=== PATIENT | female | born 1945 | race Caucasian/White ===

== ENCOUNTER → 2016-07-13 | Outpatient (CLI) | payer OTHER ==
[~2016-07-13] MED LIST: ACETAMINOPHEN650 M1 PO; ALLEGRA-D1 TAB.SR1; ASTELIN137 MCG; ASTELIN137 MCG INH; ATIVAN0.5 MG PO; BENTYL20 MG PO; BUTALB-ACETAMI1 EACH PO; CALCIUM; CALCIUM + D 6001 TA1 PO; CALCIUM 600 +1 EA16 PO; CALCIUM CITRATE1 T12 PO; CALCIUM CITRATE1 T15 PO; CARAFATE1 G PO; CENTRUM SILVER PO; CIPRO250 MG PO; CRESTOR PO; FEMARA2.5 MG; FIORICET W/CODE1 CAP; FLOVENT DISKUS50 MCG INH; FLUOXETINE HCL20 M1 PO; FOSAMAX PO; GLUCOSAMINE500 M1 PO; LIPITOR40 MG PO; LISINOPRIL20 MG PO; LODINE400 MG PO; METOPROLOL SUCC25 MG PO; NABUMETONE; NASONEX17 GM; NEURONTIN100 MG PO; NILSTAT PO; OMEGA 3 FISH OI1 CAP PO; OMEPRAZOLE20 M1 PO; OMEPRAZOLE20 M2 PO; OSTEO BI-FLEX1 EAC1 PO; PERCOCET5/325 PO; PREVACID; PRILOSEC20 M1 PO; PROTONIX PO; PROZAC PO; SARAFEM20 MG PO; STOOL SOFTENER100 M1 PO; TOPROL XL PO; TRIMETHOPRIM; VITAMIN D1000 UNI1 PO; VITAMIN D3 1,01 EACH PO; VITAMIN D31000 UNI1 PO; WAL-FEX ALLERG180 MG PO; ZETIA PO; ZOCOR
--- NOTE | ~2016-07-13 | US5 ---
[facility] A Service of [facility] & [facility] RADIOLOGY TEXT RESULTS PATIENT: HENRI HAN LOCATION: [facility] : 43 UNIT #: [id number] AGE: [address]: JESS VALERIO MD SEX: F ORDER DR: [id number] [facility] [address] [place], [place] [address] [id number] O MR#: [id number] Acc #: [id number] NAME: HENRI HAN : 1945 SEX: F STUDY DATE/TIME: 07/13/2016 10:57 UNIT: [facility] ROOM: STUDY DESCRIPTION: US Abdominal Complete Attending Physician: Jess Valerio M.D. Referring Physician: Jess Valerio M.D. Ordering Physician: Jess Valerio M.D. Primary Care Physician: Jess Valerio M.D. MEDICAL IMAGING REPORT This report is preliminary unless electronic signature is present EXAM Abdominal ultrasound, complete, 07/13/2016. HISTORY Abnormally elevated liver enzymes on 07/01/2016. FINDINGS The liver is homogeneous in echotexture and demonstrates no cystic or solid mass lesions. The intra and extrahepatic bile ducts are not dilated. The gallbladder contains minimal sludge and there is a small nonshadowing echogenic focus along its dependent portion which could represent a nonshadowing gallstone. There is no evidence of gallbladder wall thickening or pericholecystic fluid. The common duct measures 4 mm. The pancreas and spleen are normal. The spleen measures 8.5 cm in greatest diameter. The visualized portions of the abdominal aorta and inferior vena cava are within normal limits. The kidneys are normal bilaterally. IMPRESSION Minimal gallbladder sludge. Small 3 mm echogenic nonshadowing focus along the dependent portion of the gallbladder may represent a nonshadowing gallstone. No evidence of gallbladder wall thickening. No intra or extrahepatic biliary ductal dilatation. Dictated by... Matthew Henry M.D. THIS IS AN ELECTRONICALLY VERIFIED REPORT Matthew Henry M.D. at 07/14/2016 8:30 AM KRT/veena [facility] A Service of [facility] & [facility] RADIOLOGY TEXT RESULTS PATIENT: HENRI HAN [id number] : 43 UNIT #: [id number] AGE: [address]: JESS VALERIO MD SEX: F ORDER DR: TD: 07/13/2016 12:46 JOB #: [id number] MEDICAL IMAGING REPORT Page 1 of 1 COPY
== END | disposition home or self-care (01) ==
LOC: CGUS 10:09
DX: R79.89 Other specified abnormal findings of blood chemistry (principal); K82.8 Other specified diseases of gallbladder
CPT/HCPCS: 76700

== ENCOUNTER 2016-07-21 14:18 | Inpatient (IN) | payer OTHER ==
--- NOTE | ~2016-07-21 | CR72 ---
[facility] A Service of [facility] & [facility] RADIOLOGY TEXT RESULTS PATIENT: CHANTAL HAN LOCATION: [facility] : 43 UNIT #: [id number] AGE: [address]: Cali Garza DO SEX: F ORDER DR: [id number] [facility] [address] [place], [place] [address] [id number] P MR#: [id number] Acc #: [id number] NAME: CHANTAL HAN : 1945 SEX: F STUDY DATE/TIME: 07/21/2016 11:26 UNIT: [facility] ROOM: STUDY DESCRIPTION: CR Chest Single View Portable Attending Physician: Cali Garza D.O. Ordering Physician: Cali Garza D.O. Primary Care Physician: Filemon Pulido M.D. MEDICAL IMAGING REPORT This report is preliminary unless electronic signature is present EXAM Chest portable 07/21/2016 1126 hours HISTORY 71-year-old woman with 2-day history of shortness of air with weakness. History of previous breast carcinoma. COMPARISON 11/13/2015 FINDINGS Portable upright chest demonstrates normal heart size. There is a tortuous atherosclerotic aorta without change. There is volume loss in the left hemithorax unchanged. There is mild increase in perihilar and interstitial markings left greater than right lung. There is no pleural effusion or pneumothorax. Benign calcified granulomatous changes are seen. Surgical clips are present in the left axilla. IMPRESSION There is stable volume loss in the left hemithorax with mild increase in perihilar interstitial markings left greater than right lung. This could be technical or could represent subtle evidence of interstitial edema. There are underlying benign calcified granulomata. There are no effusions. Dictated by... Chantal Padron M.D. THIS IS AN ELECTRONICALLY VERIFIED REPORT Chantal Padron M.D. at 07/21/2016 2:31 PM CONY/jason TD: 07/21/2016 13:08 JOB #: [id number] [facility] A Service of [facility] & [facility] RADIOLOGY TEXT RESULTS PATIENT: CHANTAL HAN LOCATION: [facility] #: [id number] : 43 UNIT #: [id number] AGE: [address]: Cali Garza DO SEX: F ORDER DR: MEDICAL IMAGING REPORT Page 1 of 1 COPY
--- NOTE | ~2016-07-21 | DS ---
Unit #: [id number] #: [id number] Patient: HENRI HAN [id number] [address] [place], [place] [address] [id number] I MR#: [id number] NAME: HENRI HAN ROOM: 569 Age: 71 Sex: F Admission Date: 07/21/2016 : 1945 Discharge Date: 07/25/2016 Attending Physician: Josh Branhc M.D. Primary Care Physician: Filemon Pulido M.D. DISCHARGE SUMMARY ADMITTING DIAGNOSES Weakness, dizziness, and possible urinary tract infection. HISTORY OF PRESENTING ILLNESS Patient is a 71-year-old lady with a past medical history of nonischemic cardiomyopathy, and history of breast cancer, status post mastectomy and lumpectomy, who was brought to the emergency room with the chief complaint of weakness since last Monday prior to hospitalization. HOSPITAL COURSE Initial workup showed a sodium of 125 and lactic acid of 2.3. She was started on IV fluids and started on sepsis protocol. Urinalysis showed leukocyte esterase 2+, nitrite negative, WBCs positive. Urine cultures were sent. She was started on antimicrobials. Clinically she is feeling better. Her urine culture came back as no growth. Physical therapy and occupational therapy evaluated her and recommended that she can be discharged home with home healthcare. She was also seen by Dr. Cleveland. He recommended to continue the fluoxetine. She is clinically better. I spoke with the patient and her family, and she wants to go home. PHYSICAL EXAMINATION ON DAY OF DISCHARGE VITAL SIGNS: Temperature 98.5, pulse rate 95, respirations 16, and blood pressure 105/71. GENERAL: Patient is alert and oriented x3, lying in the bed in no acute distress. HEENT: Normocephalic and atraumatic. No icterus. Pupils are equal, round, and reactive to light and accommodation. Extraocular muscles intact. NECK: Supple. No JVD. HEART: S1 and S2, regular rate and rhythm. CHEST: Bilateral equal air entry, clear to auscultation. ABDOMEN: Soft and nontender. EXTREMITIES: No edema. Normal pulses. DISCHARGE MEDICATIONS 1. Nystatin 5 mL swish and swallow 4 times daily. 2. Flonase 0.05% nasal spray daily. 3. Neurontin 100 mg 3 times daily. 4. Prozac 40 mg in the morning and 20 mg at bedtime. Unit #: [id number] #: [id number] Patient: HENRI HAN 5. Fexofenadine 180 mg p.o. daily. 6. Ativan 0.5 mg at bedtime. 7. Glucosamine 500 mg p.o. daily. 8. Toprol-XL 25 mg in the morning. 9. Lipitor 40 mg at bedtime. 10. Multivitamin 1 capsule p.o. daily. 11. Calcium with vitamin D 1 capsule p.o. daily. FOLLOWUP With her primary care in one to two weeks. Total time spent in her discharge 28 minutes. Dictated by... Jeana Freitas TD: 07/25/2016 21:15 JOB #: [id number] DISCHARGE SUMMARY Page 1 of 1 X X DISCHARGE SUMMARY
--- NOTE | ~2016-07-21 | HP ---
Unit #: [id number] #: [id number] Patient: HENRI HAN [id number] [address] [place], [place] [address] [id number] I MR#: [id number] NAME: HENRI HAN ROOM: 41459 Age: 71 Sex: F Admission Date: 07/21/2016 : 1945 Attending Physician: Slick Covarrubias M.D. Primary Care Physician: Filemon Pulido M.D. HISTORY AND PHYSICAL CHIEF COMPLAINT Dizziness. HISTORY OF PRESENT ILLNESS The patient is a 71-year-old female with the history of nonischemic cardiomyopathy and breast cancer, status post mastectomy and lumpectomy, brought to the emergency room complaining of the weakness. The patient has been feeling weakness since last Monday. The patient was seen at the immediate care center and was discharged from the immediate care center with pills for the nausea. The patient presented to the emergency room complaining of feeling dizzy along with the associated weakness. The patient was found to have a sodium of 125 and lactate of 2.3 and has been admitted for the above reasons. The patient denies any fever or chills. The patient denies any new medications. PAST MEDICAL HISTORY 1. History of nonischemic cardiomyopathy. 2. Anxiety. 3. Hypertension. 4. Depression. 5. Hyperlipidemia. PAST SURGICAL HISTORY 1. History of mastectomy. 2. EGD. 3. Lumbar injections. HOME MEDICATIONS 1. Lipitor. 2. Gabapentin. 3. Fluoxetine. 4. Lorazepam. 5. Metoprolol. 6. Flonase. 7. Lcjoy-Fx-Ghjx. 8. Centrum. 9. Calcium. 10. Mineral oil. ALLERGIES Morphine. FAMILY HISTORY Reviewed and none. Unit #: [id number] #: [id number] Patient: HENRI HAN REVIEW OF SYSTEMS A 14-point review of systems performed and only pertinent positive findings as described above, remaining are negative. PHYSICAL EXAMINATION VITAL SIGNS: Temperature 97.8, pulse 113, respiratory rate 20, blood pressure 83/60, saturating 99% at room air. GENERAL: Patient is lying on the bed not in acute distress. HEENT: Atraumatic, normocephalic. Pupils equal, round, and reactive to light and accommodation. Extraocular movements are intact. Dry mucous membrane. NECK: Supple. LUNGS: Decreased air entry at the bases. HEART: Regular rate and rhythm. ABDOMEN: Soft, positive bowel sounds. EXTREMITIES: No cyanosis, no clubbing. NEUROLOGIC: Alert, awake, oriented. DIAGNOSTIC STUDIES LABORATORY: Glucose 140, BUN 15, creatinine 1.2, sodium 125, potassium 3.2, chloride 92, bicarb 23, calcium 8.2, AST 272, ALT 134, alkaline phosphatase 159. BNP 38. Lactic acid 2.3. INR 1.1. WBC 2.8, hemoglobin 12.8, hematocrit 37.8, platelets 61, neutrophils 80.2. UA shows 2+ leukocyte esterase, 25-50 urine rbc's, 10-25 urine wbc's and 2+ blood. IMAGING: Chest x-ray shows there is a stable volume loss in the left hemithorax with mild increase in perihilar interstitial markings, left greater than right. This could represent evidence of interstitial edema. CT of the head is negative. ASSESSMENT AND PLAN 1. Dizziness. 2. Hyponatremia. 3. Urinary tract infection. 4. Sepsis. PLAN 1. Admit patient as inpatient with telemetry. 2. Continue the fluid replacement with the sepsis protocol and start with IV antibiotics Rocephin 1 gram daily and follow with the sepsis protocol. 3. Replace the potassium per protocol. 4. Repeat the labs again in the morning. 5. If needed, will have oncology evaluation for the pancytopenia if not resolved with the fluids and antibiotics. 6. Will hold the patient's lorazepam while the patient is in the hospital. 7. Further recommendations will follow. Dictated by Unit #: [id number] #: [id number] Patient: GUILLEJeana Valentino TD: 07/21/2016 16:44 JOB #: [id number] HISTORY AND PHYSICAL Page 1 of 1 X X HISTORY AND PHYSICAL
--- NOTE | ~2016-07-21 | CT71 ---
[facility] A Service of [facility] & [facility] RADIOLOGY TEXT RESULTS PATIENT: HENRI HAN LOCATION: [facility] 569-01 : 43 UNIT #: [id number] AGE: [address]: Josh Branch MD SEX: F ORDER DR: [id number] [facility] [address] [place], [place] [address] [id number] I MR#: [id number] Acc #: [id number] NAME: HENRI HAN : 1945 SEX: F STUDY DATE/TIME: 07/21/2016 12:36 UNIT: [facility] ROOM: [facility] STUDY DESCRIPTION: CT Head Wo Contrast Attending Physician: Slick Covarrubias M.D. Ordering Physician: Cali Garza D.O. Primary Care Physician: Filemon Pulido M.D. MEDICAL IMAGING REPORT This report is preliminary unless electronic signature is present EXAM CT of the head without INDICATION Dizzy spells balance is off today. Patient also has had headaches on and off for 1 year, headache is worse today. She does have a history of breast cancer diagnosed in 1997. TECHNIQUE Axial CT images were obtained from the vertex of skull through the skull base. No intravenous contrast was administered. This CT exam was performed with one or more of the following radiation dose reduction techniques: automatic control, adjustment of mA and/or kV according to patient size, and iterative reconstruction. FINDINGS No acute intracranial hemorrhage is identified.. Brain parenchyma is normal in attenuation with no focal areas of decreased attenuation seen. There is no midline shift or mass effect. There is cerebral atrophy which is in keeping with the patient's age of 71. No aggressive osseous abnormalities are identified. Visualized paranasal sinuses and mastoid air cells appear clear. There are no focal soft tissue abnormalities. IMPRESSION 1. No acute intracranial process is identified. Specifically there is no evidence acute hemorrhage, mass lesion or acute infarct. 2. Mild cerebral atrophy in keeping with the patient age of 71. Dictated by... Carina Renner M.D. THIS IS AN ELECTRONICALLY VERIFIED REPORT Carina Renner M.D. at 07/22/2016 8:15 AM [facility] A Service of [facility] RADIOLOGY TEXT RESULTS PATIENT: HENRI HAN LOCATION: [facility] 569-01 : 43 UNIT #: [id number] AGE: [address]: Josh Branch MD SEX: F ORDER DR: SIMONE/merr TD: 07/21/2016 14:03 JOB #: [id number] MEDICAL IMAGING REPORT Page 1 of 1 COPY
--- NOTE | ~2016-07-21 | EKG ---
PATIENT: HENRI HAN UNIT #: [id number] Ventricular Rate: 103 BPM Atrial Rate: 103 BPM P-R Interval: 138 ms QRS Duration: 100 ms Q-T Interval: 376 ms QTC Calculation(Bezet): 492 ms P Galloway: 52 degrees Calculated R Galloway: -15 degrees Calculated T Galloway: 13 degrees Diagnosis Line: Sinus tachycardia Diagnosis Line: Inferior infarct , age undetermined Diagnosis Line: Abnormal ECG Diagnosis Line: When compared with ECG of 31-JAN-2013 20:19, Diagnosis Line: Vent. rate has increased BY 34 BPM Diagnosis Line: Inferior infarct is now Present Diagnosis Line: QT has lengthened Diagnosis Line: Confirmed by JEN HANSEN MD ([id number]) on 07/24/2016 Diagnosis Line: 3:58:13 PM INTERPRETING MD: TYRONE ROBLERO
--- NOTE | ~2016-07-21 | CO ---
Unit #: [id number] #: [id number] Patient: CHANTAL BURGOS [id number] [facility] [address] [place], [place] [address] [id number] I MR#: [id number] NAME: CHANTAL BURGOS ROOM: 569 Age: 71 Sex: F Admission Date: 07/21/2016 : 1945 Attending Physician: Josh Branch M.D. Primary Care Physician: Filemon Pulido M.D. Consultation Date: 07/25/2016 CONSULTATION REPORT REASON FOR CONSULTATION Followup. DISCUSSION Ms. Chantal Burgos is a 71-year-old white female, seen in room 569, bed 1 on 07/25/2016. The patient reports that she is feeling better, started on medication. The patient was seen at [facility]. The patient is currently started back on Prozac and Ativan. Sleeping good. Reports feeling better. The patient's was at the bedside. The patient was sitting comfortably in a recliner, dressed in hospital attire, able to answer questions appropriately. Currently, denied any suicidal or homicidal ideation. Denied any psychotic symptom. The patient's vital signs; temperature 98.5, pulse 95, respiratory rate 16, blood pressure 105/71, oxygen saturation 96%. MENTAL STATUS EXAMINATION General appearance, the patient dressed casually in hospital attire. Vital signs, please see above. Attention span and concentration, fair. Speech, regular rate and coherent. Oriented in time, place, and person. Mood and affect were labile. Thought process, coherent. Thought content, the patient denied any thoughts of harming self or others. Denied any psychotic symptom. Recent and remote memory, fair. Language, intact. Fund of knowledge, fair. Insight and judgment, fair to slightly impaired. DIAGNOSIS Major depressive disorder, recurrent, moderate, F33.2. ASSESSMENT/PLAN 1. Supportive psychotherapy and psychoeducation provided to the patient. 2. Educated about benefits and side effects of medication and course and prognosis of illness. 3. Advised to continue with current medication and the patient to follow up with Dr. Lee after discharge. The patient was also given crisis line number in case of emergency [phone]. Dictated by... Jeana Torres/peter TD: 07/26/2016 00:36 JOB #: [id number] Unit #: [id number] #: [id number] Patient: CHANTAL BURGOS CONSULTATION REPORT Page 1 of 1 X Jeff Cleveland MD X CONSULTATION REPORT
--- NOTE | ~2016-07-21 | CO ---
Unit #: [id number] #: [id number] Patient: CHANTAL BURGOS [id number] [facility]. [place], [place] [address] [id number] I MR#: [id number] NAME: CHANTAL BURGOS ROOM: 569 Age: 71 Sex: F Admission Date: 07/21/2016 : 1945 Attending Physician: Josh Branch M.D. Primary Care Physician: Filemon Pulido M.D. Consultation Date: 07/24/2016 CONSULTATION REPORT REASON FOR CONSULTATION Depression. HISTORY OF PRESENT ILLNESS Ms. Chantal Burgos is a 71-year-old white female seen in room 569 bed 1 on 07/24/16 at [facility]. Patient dressed in hospital attire, lying comfortably in bed. Patient reports that initially she was very sad, depressed but feeling better. Patient currently denies any suicidal or homicidal ideation, denied any psychotic symptom. Patient has a history of previous treatment and recently seen by Dr. Lee in outpatient clinic with recent diagnosis of major depressive disorder, also diagnosed with generalized anxiety disorder. Patient is currently on Prozac 40 mg q.a.m. and 20 mg q.p.m., Ativan 0.5 mg q.h.s. Patient is also on Neurontin 100 mg t.i.d. Patient was last seen by Dr. Lee on May 18, 2016. PAST PSYCHIATRIC HISTORY Please see above. PAST MEDICAL HISTORY AND MEDICATION HISTORY History of anxiety, depression, hypertension, hyperlipidemia. Medication: Patient is on Lipitor, gabapentin, fluoxetine, lorazepam, metoprolol, Flonase, Centrum, calcium, mineral oil. ALLERGIES Morphine. FAMILY HISTORY AND SOCIAL HISTORY Patient has a good support system from family, no history of abuse, no history of any substance abuse. REVIEW OF SYSTEMS Complete review of systems unremarkable. MENTAL STATUS EXAMINATION VITAL SIGNS: Temperature 98.3, heart rate 117, respiratory rate 18, blood pressure 101/59, oxygen saturation 99%. GENERAL APPEARANCE: Patient dressed casually in hospital attire, lying comfortably in bed. ATTENTION SPAN AND CONCENTRATION: Fair. SPEECH: A regular rate, coherent. ORIENTATION: Oriented in time, place and person. MOOD AND AFFECT: Sad, dysphoric but able to smile. Unit #: [id number] #: [id number] Patient: CHANTAL BURGOS THOUGHT PROCESS: Coherent. THOUGHT CONTENT: Patient denied any suicidal or homicidal ideation, denied any auditory or visual hallucination. MEMORY: Recent and remote memory fair. LANGUAGE: Intact. FUND OF KNOWLEDGE: Fair. INSIGHT AND JUDGMENT: Fair to slightly impaired. DIAGNOSES PSYCHIATRIC: Major depressive disorder, recurrent, moderate, F33.2. SECONDARY: Deferred. MEDICAL: Please refer to H and P. STRESSORS Psychosocial stressors. ASSESSMENT AND PLAN 1. Supportive psychotherapy and psychoeducation provided to patient. 2. Educated about benefits and side effects of medication and course and prognosis of illness. 3. Advised to continue with the current medication, Prozac 40 mg q.a.m. and 20 mg q.p.m. and Ativan 0.5 mg q.h.s. Please feel free to call if any question, telephone number [phone]. Dictated by... Jeana Torres/ina TD: 07/24/2016 15:40 JOB #: [id number] CONSULTATION REPORT Page 1 of 1 X Jeff Cleveland MD X CONSULTATION REPORT
[2016-07-21 11:55] LABS: POC - CKMB <1.0 ng/mL (0.0-7.9); POC - TROPONIN <0.05 ng/mL (<=0.05)
[2016-07-21 12:06] LABS: BASOPHIL% 0.2 % (0-2.5); HEMATOCRIT 37.8 % (35.0-45.0); HEMOGLOBIN 12.8 gm/dL (12.0-16.0); LYMPHOCYTE# 0.4 X10e3 (1.0-3.5); MEAN CELL VOLUME 85.9 FL (83-96); MEAN CORPUSCULAR HEMOGLOBIN 29.1 PG (28-34); MEAN CORPUSCULAR HGB CONC 33.9 g/dL (30-36); MEAN PLATELET VOLUME 9.8 FL (6.5-11.5); MONOCYTE# 0.2 X10e3 (0-1.0); MONOCYTE% 5.6 % (3.0-12.0); NEUTROPHIL# 2.3 X10e3 (1.5-7.1); NEUTROPHIL% 80.2 % (40-75); PLATELET COUNT 61 X10e3 (140-420); RED CELL DISTRIBUTION WIDTH 14.2 % (11.0-15.5); WHITE BLOOD COUNT 2.8 X10e3 (4.0-10.5)
[2016-07-21 12:14] LABS: DIFF IND YES; INR 1.1; PARTIAL THROMBOPLASTIN TIME 32.7 SECONDS (23.5-31.3); PROTHROMBIN TIME (PATIENT) 11.4 SECONDS (9.6-11.5)
[2016-07-21 12:18] LABS: ANISOCYTOSIS SL; PLATELET ESTIMATE DECREASED (NORMAL)
[2016-07-21 12:28] LABS: ALBUMIN SERUM 3.1 g/dL (3.5-5.0); BILIRUBIN, DIRECT 0.2 mg/dL (0.0-0.2); BILIRUBIN,INDIRECT 0.4 mg/dL (0.0-0.9); BILIRUBIN,TOTAL 0.6 mg/dL (0.2-2.0); BUN/CREATININE RATIO 12.5; CALCIUM SERUM 8.2 mg/dL (8.4-10.2); CREATININE SERUM 1.2 mg/dL (0.6-1.4); GLOM FILT RATE Estimated 44.8 mL/min (>60); POTASSIUM 3.2 mmol/L (3.5-5.1)
[2016-07-21 13:49] LABS: POC - CKMB <1.0 ng/mL (0.0-7.9); POC - TROPONIN <0.05 ng/mL (<=0.05)
[~2016-07-21 14:18] MED LIST changes: -ACETAMINOPHEN650 M1 PO; -CALCIUM 600 +1 EA16 PO; -FLOVENT DISKUS50 MCG INH; -GLUCOSAMINE500 M1 PO; -LIPITOR40 MG PO; -NEURONTIN100 MG PO; -NILSTAT PO; -SARAFEM20 MG PO; -WAL-FEX ALLERG180 MG PO
[2016-07-21 14:42] LABS: URINE SOURCE CLEAN CATCH
[2016-07-21 14:49] LABS: URINE APPEARANCE TURBID; URINE BILIRUBIN NEG (NEG); URINE BLOOD 2+ (NEG); URINE COLOR YELLOW; URINE GLUCOSE NEG (NEG); URINE KETONE NEG (NEG); URINE LEUKOCYTE ESTERASE 2+ (NEG); URINE NITRATE NEG (NEG); URINE PROTEIN 1+ (NEG); URINE SPECIFIC GRAVITY 1.012 (1.003-1.035)
[2016-07-21 14:51] LABS: CULTURE INDICATED? YES; URBCS1 AUWI 25-50 /[HPF] (0-2); URINE BACTERIA AUWI NEG (NEGATIVE); URINE SQUAMOUS EPITHELIAL CELL FEW /[HPF]
[2016-07-21] MEDS ORDERED: NEURONTIN100 MG PO (16:19)
[2016-07-21] MEDS ORDERED: LIPITOR40 MG PO (16:19)
[2016-07-21] MEDS ORDERED: SARAFEM20 MG PO ×2 (16:20)
[2016-07-21] MEDS ORDERED: ATIVAN0.5 MG PO (16:21)
[2016-07-21] MEDS ORDERED: METOPROLOL SUCC25 MG PO (16:22)
[2016-07-21] MEDS ORDERED: OSTEO BI-FLEX1 EAC1 PO (16:23)
[2016-07-21] MEDS ORDERED: CENTRUM SILVER PO (16:23)
[2016-07-21] MEDS ORDERED: FLOVENT DISKUS50 MCG INH (16:23)
[2016-07-21] MEDS ORDERED: CALCIUM 600 +1 EA16 PO (16:24)
[2016-07-21] MEDS ORDERED: WAL-FEX ALLERG180 MG PO (16:25)
[2016-07-22 03:05] LABS: BASOPHIL% 0.2 % (0-2.5); DIFF IND NO; HEMATOCRIT 36.4 % (35.0-45.0); HEMOGLOBIN 11.9 gm/dL (12.0-16.0); LYMPHOCYTE# 0.5 X10e3 (1.0-3.5); LYMPHOCYTE% 12.9 % (17.0-45.0); MEAN CELL VOLUME 87.7 FL (83-96); MEAN CORPUSCULAR HEMOGLOBIN 28.7 PG (28-34); MEAN CORPUSCULAR HGB CONC 32.7 g/dL (30-36); MEAN PLATELET VOLUME 9.9 FL (6.5-11.5); MONOCYTE# 0.1 X10e3 (0-1.0); MONOCYTE% 3.1 % (3.0-12.0); NEUTROPHIL# 3.5 X10e3 (1.5-7.1); NEUTROPHIL% 83.8 % (40-75); PLATELET COUNT 60 X10e3 (140-420); RED BLOOD COUNT 4.15 X10e (3.90-5.30); RED CELL DISTRIBUTION WIDTH 14.5 % (11.0-15.5); WHITE BLOOD COUNT 4.2 X10e3 (4.0-10.5)
[2016-07-22 03:35] LABS: THYROID STIMULATING HORMONE 1.7 uIU/ml (0.34-5.60)
[2016-07-22 03:42] LABS: FREE THYROXIN (T4) 0.94 ng/dL (0.58-1.64)
[2016-07-22 06:50] LABS: CALCIUM SERUM 7.8 mg/dL (8.4-10.2); GLOM FILT RATE Estimated 55.9 mL/min (>60); POTASSIUM 3.8 mmol/L (3.5-5.1)
[2016-07-22 18:02] LABS: MB 2.7 ng/ml
[2016-07-23 00:11] LABS: %MB 1.1 % (0.0-4.0); MB 3.3 ng/ml
[2016-07-23 06:23] LABS: HEMATOCRIT 33.4 % (35.0-45.0); HEMOGLOBIN 11.1 gm/dL (12.0-16.0); MEAN CELL VOLUME 86.5 FL (83-96); MEAN CORPUSCULAR HEMOGLOBIN 28.8 PG (28-34); MEAN CORPUSCULAR HGB CONC 33.2 g/dL (30-36); MEAN PLATELET VOLUME 9.9 FL (6.5-11.5); RED BLOOD COUNT 3.86 X10e (3.90-5.30); RED CELL DISTRIBUTION WIDTH 14.4 % (11.0-15.5); WHITE BLOOD COUNT 7.1 X10e3 (4.0-10.5)
[2016-07-23 07:43] LABS: CALCIUM SERUM 7.6 mg/dL (8.4-10.2); GLOM FILT RATE Estimated 55.9 mL/min (>60); POTASSIUM 3.4 mmol/L (3.5-5.1)
[2016-07-24 06:03] LABS: HEMATOCRIT 31.6 % (35.0-45.0); HEMOGLOBIN 10.6 gm/dL (12.0-16.0); MEAN CELL VOLUME 85.9 FL (83-96); MEAN CORPUSCULAR HEMOGLOBIN 28.8 PG (28-34); MEAN CORPUSCULAR HGB CONC 33.5 g/dL (30-36); MEAN PLATELET VOLUME 9.6 FL (6.5-11.5); RED BLOOD COUNT 3.67 X10e (3.90-5.30); RED CELL DISTRIBUTION WIDTH 14.1 % (11.0-15.5)
[2016-07-24 06:48] LABS: BUN/CREATININE RATIO 13.75; CALCIUM SERUM 7.9 mg/dL (8.4-10.2); CREATININE SERUM 0.8 mg/dL (0.6-1.4); GLOM FILT RATE Estimated 73.2 mL/min (>60); POTASSIUM 3.6 mmol/L (3.5-5.1)
[2016-07-25] MEDS ORDERED: ACETAMINOPHEN650 M1 PO (14:47)
[2016-07-25] MEDS ORDERED: NILSTAT PO (14:56)
[2016-07-25] MEDS ORDERED: GLUCOSAMINE500 M1 PO (14:57)
== END 2016-07-25 15:49 | disposition home or self-care (01) | DRG 872 ==
LOC: CED 14:18 → CEDOF 15:05 → C5C 07-22 04:53
PROVIDERS: Emergency Medicine; Family Medicine; Internal Medicine
PROC: B246ZZZ Ultrasonography of Right and Left Heart (ICD-10-PCS; principal; 2016-07-23)
DX: A41.9 Sepsis, unspecified organism (principal); I42.8 Other cardiomyopathies; N39.0 Urinary tract infection, site not specified; F33.1 Major depressive disorder, recurrent, moderate; E87.1 Hypo-osmolality and hyponatremia; R42 Dizziness and giddiness; E78.5 Hyperlipidemia, unspecified; F41.9 Anxiety disorder, unspecified; I10 Essential (primary) hypertension; Z85.3 Personal history of malignant neoplasm of breast; Z90.10 Acquired absence of unspecified breast and nipple
CPT/HCPCS: 36415; 70450; 71010; 80048; 80076; 81003; 82550; 82553; 83605; 83735; 83880; 84132; 84439; 84443; 84484; 85025; 85027; 85610; 85730; 87040; 87086; 93005; 93306; 94760; 96360; 97110; 97116; 97161; 97166; 97535; 99285; G8978-GP; G8979-GP; G8987-GO; G8988-GO; G8989-GO; J0696; J2405; J3475

== ENCOUNTER → 2016-10-12 | Outpatient (CLI) | payer OTHER ==
[~2016-10-12] MED LIST changes: +ACETAMINOPHEN650 M1 PO; +CALCIUM 600 +1 EA16 PO; +FLOVENT DISKUS50 MCG INH; +GLUCOSAMINE500 M1 PO; +LIPITOR40 MG PO; +NEURONTIN100 MG PO; +NILSTAT PO; +SARAFEM20 MG PO; +WAL-FEX ALLERG180 MG PO
--- NOTE | ~2016-10-12 | MY28 ---
[facility] A Service of [facility] RADIOLOGY TEXT RESULTS PATIENT: HENRI HAN LOCATION: [facility] : 43 UNIT #: [id number] AGE: [address]: JESS VALERIO MD SEX: F ORDER DR: [id number] [facility] [address] [place], [place] [address] [id number] O MR#: [id number] Acc #: [id number] NAME: HENRI HAN : 1945 SEX: F STUDY DATE/TIME: 10/12/2016 10:12 UNIT: [facility] ROOM: STUDY DESCRIPTION: MY SARAH SCREEN W/ CAD UNI RT Attending Physician: Jess Valerio M.D. Referring Physician: Jess Valerio M.D. Ordering Physician: Jess Valerio M.D. Primary Care Physician: Jess Valerio M.D. MEDICAL IMAGING REPORT This report is preliminary unless electronic signature is present EXAM Unilateral right digital screening mammogram 10/12/2016 HISTORY 71-year-old woman. Previous left mastectomy, 1997. Annual screen. COMPARISON Mammograms 09/18/2013, 09/22/2014, 10/12/2015. FINDINGS Digital imaging of the right breast was completed utilizing two-view screening protocol. Review includes FDA-approved CAD device. Breast parenchyma is predominantly fatty replaced and stable. There is no interval occurring mass. There are no suspicious microcalcifications and no architectural deformity. IMPRESSION Negative unilateral right mammogram. Status post left mastectomy. Annual screening recommended. Patient's over the age of 40 are entered into a reminder system with target due date for the next mammogram. BIRADS: 1 Negative Dictated by... Karri Strong M.D. THIS IS AN ELECTRONICALLY VERIFIED REPORT Karri Strong M.D. at 10/12/2016 3:25 PM [facility] A Service of [facility] RADIOLOGY TEXT RESULTS PATIENT: [facility]ENRI HAN [id number] 43 UNIT #: [id number] AGE: [address]: JESS VALERIO MD SEX: F ORDER DR: TD: 10/12/2016 14:12 JOB #: [id number] MEDICAL IMAGING REPORT Page 1 of 1 COPY
== END | disposition home or self-care (01) ==
LOC: CWCC 09:46
DX: Z12.31 Encounter for screening mammogram for malignant neoplasm of breast (principal); Z90.12 Acquired absence of left breast and nipple
CPT/HCPCS: G0202